=== PATIENT | female | born 1960 | race Caucasian/White ===

== ENCOUNTER → 2024-02-14 10:53 | Outpatient (CLI) | payer OTHER, SELFPAY ==
--- NOTE | 2024-02-14 11:01 | DI.RAD.S_ITS ---
PROCEDURE: XR KNEE LT 3V INDICATIONS: Pain in left knee TECHNIQUE: 3 views of the left knee were acquired. COMPARISON: None. FINDINGS: Mild degenerative changes of the left knee with joint space narrowing predominantly in the medial and lateral compartments. No radiographic evidence of displaced fracture, dislocation, knee joint effusion or high attenuation soft tissue foreign body. IMPRESSION: Mild degenerative changes as discussed above. If symptoms persist or worsen, or there is high clinical suspicion of left knee abnormality, MRI could be performed. Dictated by: Viraj Hernandez M.D. on 02/17/2024 at 9:23 Approved by: Viraj Hernandez M.D. on 02/17/2024 at 9:37
== END ==
LOC: RAD 10:59
PROVIDERS: Referring Provider Naturopath; Visit Provider Naturopath
DX: M25.562 Pain in left knee (principal)
CPT/HCPCS: 73562